=== PATIENT | female | born 1995 | race African-American/Black ===

== ENCOUNTER 2016-10-18 22:07 | Emergency (ER) | payer OTHER ==
[2016-10-18 22:21] VITALS: BP 119/56; PULSE 86; TEMP 97.9; BMI 23.2
--- NOTE | 2016-10-19 01:06 | PDOC ---
History of Present Illness - General Chief Complaint: Back Pain Stated Complaint: LOWER BACK PAIN Time Seen by Provider: 10/19/16 01:04 - History of Present Illness Initial Comments: 10/19/16 01:37 Patient is a 21-year-old female with no past medical history who presents to the emergency department today complaining of lower back pain. She states her pain started approximately 4 days ago and hasn't gotten better. She's been taking Motrin as needed for pain. She states that her back feels like it is seizing, and it hurts to walk. Admits to limp, back spasm. Denies bladder/bowel incontinence. Denies hematuria, frequency, urgency, dysuria, weakness, numbness , tingling, unsteady gait. Past History - Past Medical History Allergies/Adverse Reactions: Allergies Allergy/AdvReac Type Severity Reaction Status Date / Time No Known Allergies Allergy Verified 10/18/16 22:17 Home Medications: Ambulatory Orders Diazepam [Valium] 5 mg PO Q8H PRN #12 tablet MDD 3 10/19/16 Ibuprofen 800 mg PO TID #30 tablet 10/19/16 - Immunization History Immunization Up to Date: Yes - Psycho/Social/Smoking Cessation Hx Anxiety: No Suicidal Ideation: No Smoking History: Never smoked Hx Alcohol Use: No Review of Systems - Review of Systems Able to Perform ROS?: Yes Comments:: 10/19/16 01:37 CONSTITUTIONAL: Absent: fever, chills, diaphoresis, generalized weakness, malaise, loss of appetite HEENT: Absent: rhinorrhea, nasal congestion, throat pain, throat swelling, difficulty swallowing, mouth swelling, ear pain, eye pain, visual Changes CARDIOVASCULAR: Absent: chest pain, loss of consciousness, palpitations, irregular heart rate, peripheral edema RESPIRATORY: Absent: cough, shortness of breath, dyspnea with exertion, orthopnea, wheezing, stridor, hemoptysis GASTROINTESTINAL: Absent: abdominal pain, abdominal distension, nausea, vomiting, diarrhea, constipation, melena, hematochezia GENITOURINARY: Absent: dysuria, frequency, urgency, hesitancy, hematuria, flank pain, genital pain MUSCULOSKELETAL: Positive: back pain Absent: myalgia, arthralgia, joint swelling SKIN: Absent: rash, itching, pallor HEMATOLOGIC/IMMUNOLOGIC: Absent: easy bleeding, easy bruising, lymphadenopathy, frequent infections ENDOCRINE: Absent: unexplained weight gain, unexplained weight loss, heat intolerance, cold intolerance NEUROLOGIC: Absent: headache, focal weakness or paresthesias, dizziness, unsteady gait, seizure, mental status changes, bladder or bowel incontinence PSYCHIATRIC: Absent: anxiety, depression, suicidal or homicidal ideation, hallucinations. Is the patient limited Armenian proficient: No *Physical Exam - Vital Signs Last Vital Signs Temp Pulse Resp BP Pulse Ox 97.9 F 86 18 119/56 100 10/18/16 22:17 10/18/16 22:17 10/18/16 22:17 10/18/16 22:17 10/18/16 22:17 - Physical Exam Comments: 10/19/16 01:37 GENERAL: Well developed, well nourished. Awake and alert. No acute distress. HEENT: Normocephalic, atraumatic. NECK: Supple. Full ROM. No JVD. Carotid pulses 2+ and symmetric, without bruits. No thyromegaly. No lymphadenopathy. No midline neck pain MUSCULOSKELETAL TTP of lower back b/l. Palpable spasm. Normal range of motion at all joints. No bony deformities or tenderness. No CVA tenderness. EXTREMITIES: No cyanosis. No clubbing. No edema. No calf tenderness. SKIN: Warm and dry. Normal capillary refill. No rashes. No jaundice. NEUROLOGICAL: Alert, awake, appropriate. Cranial nerves 2-12 intact. No deficits to light touch and temperature in face, upper extremities and lower extremities. No motor deficits in the in face, upper extremities and lower extremities. Normoreflexic in the upper and lower extremities. Normal speech. Toes are down- going bilaterally. Gait is normal without ataxia. Medical Decision Making - Medical Decision Making 10/19/16 01:41 Patient is a 21-year-old female with past medical history of back spasm who presents with bilateral lower back spasm. Patient that she has a palpable spasm bilaterally of her lower back on exam. Neuro exam is normal. No midline tenderness or any focal neuro deficits. We will give Toradol if urine is normal. Reevaluate 10/19/16 02:59 Urine is negative at this time. We'll give 60 of IM Toradol. We'll also give 5 mg of Valium for spasm. We will discharge patient home at this time. She is to take 800 of ibuprofen 3 times a day as well as Valium as needed for spasm. He was instructed that this medication make her drowsy and she should not drive. Patient understands all discharge instructions and all questions were answered at this time. *DC/Admit/Observation/Transfer Diagnosis at time of Disposition: Back spasm - Discharge Dispostion Admit: No - Prescriptions Prescriptions: Ibuprofen 800 mg PO TID #30 tablet Diazepam [Valium] 5 mg PO Q8H PRN #12 tablet MDD 3 PRN Reason: Pain - Referrals Referrals: Mohan Mchugh MD [Staff Physician] - - Patient Instructions Printed Discharge Instructions: DI for Back Spasm Additional Instructions: You have a back spasm. you were prescribed ibuprofen. Take this every 8 hours until the spasm breaks. You were also prescribed valium. Take this as prescribed until the spasm breaks. Do not drive after taking this medication. Avoid lifting heavy objects. you may apply heat or ice to the back to help with pain. You were given a referral to a primary care doctor. Give them a call to set up an appointment. Return to the ED if you have worsening pain, chills, fevers, bladder/bowel incontinence, or any changes in your symptoms. - Post Discharge Activity Work/School Note: Back to Work
--- NOTE | 2016-10-19 02:06 | PDOC ---
*Physical Exam - Vital Signs Last Vital Signs Temp Pulse Resp BP Pulse Ox 97.9 F 86 18 119/56 100 10/18/16 22:17 10/18/16 22:17 10/18/16 22:17 10/18/16 22:17 10/18/16 22:17 Medical Decision Making - Medical Decision Making 10/19/16 02:06 agree with care from JEROME Jefferson *DC/Admit/Observation/Transfer Diagnosis at time of Disposition: Back spasm - Prescriptions Prescriptions: Ibuprofen 800 mg PO TID #30 tablet Diazepam [Valium] 5 mg PO Q8H PRN #12 tablet MDD 3 PRN Reason: Pain - Referrals Referrals: Mohan Mchugh MD [Staff Physician] - - Patient Instructions Printed Discharge Instructions: DI for Back Spasm Additional Instructions: You have a back spasm. you were prescribed ibuprofen. Take this every 8 hours until the spasm breaks. You were also prescribed valium. Take this as prescribed until the spasm breaks. Do not drive after taking this medication. Avoid lifting heavy objects. you may apply heat or ice to the back to help with pain. You were given a referral to a primary care doctor. Give them a call to set up an appointment. Return to the ED if you have worsening pain, chills, fevers, bladder/bowel incontinence, or any changes in your symptoms. - Post Discharge Activity Work/School Note: Back to Work
[2016-10-19] MEDS ORDERED: diazePAM 5 MG TABLET PO ONE (02:21)
[2016-10-19] MEDS ORDERED: KETOROLAC TROMETHAMINE 60 MG/2 ML VIAL IM ONE (02:21)
[2016-10-19] MEDS ORDERED: diazePAM 5 MG TABLET ONE (02:26)
[2016-10-19] MEDS ORDERED: KETOROLAC TROMETHAMINE 60 MG/2 ML VIAL ONE (02:26)
== END 2016-10-19 02:39 | disposition home or self-care (01) ==
LOC: JER 22:07
PROC: 3E0233Z Introduction of Anti-inflammatory into Muscle, Percutaneous Approach (ICD-10-PCS; principal; 2016-10-18)
DX: M62.830 Muscle spasm of back (principal)
CPT/HCPCS: 84703; 99281-25

== ENCOUNTER 2017-12-28 22:22 | Emergency (ER) | payer OTHER ==
[2017-12-28 22:31] VITALS: BP 132/69; PULSE 114; TEMP 99.5; BMI 29.2
--- NOTE | 2017-12-28 23:33 | PDOC ---
History of Present Illness - General Chief Complaint: Pain Stated Complaint: STOMACH PAIN Time Seen by Provider: 12/28/17 23:17 History Source: Patient Exam Limitations: No Limitations - History of Present Illness Travel History: No Initial Comments: 12/28/17 23:27 HISTORY OF PRESENT ILLNESS: This is a 22-year-old woman past medical history of asthma presents emergency Department with left pelvic pain for the past 2 weeks. Patient describes pain as a cramping feeling with occasional sharp shooting pains from left pelvic region through her vagina. Patient only seeking care she thought her menses were causing the pain. Patient reports having unprotected vaginal intercourse with one male partner over the past 8 months. Patient states her LMP is 9/30 but had decreased flow and only lasted 2 days. Patient denies any vaginal discharge, vaginal bleeding, dysuria, hematuria, rectal bleeding, diarrhea. Patient does report passing any large firm stool this morning with her previous bowel movement being 3 days ago. Patient's usual bowel habits include daily bowel movements. No recent travel or sick contacts. PAST MEDICAL HISTORY: asthma SURGICAL HISTORY: Denies ALLERGIES: No known drug allergies REVIEW OF SYSTEMS General/Constitutional: Denies fever or chills. Denies weakness, weight change. HEENT: Denies change in vision. Denies ear pain or discharge. Denies sore throat. Cardiovascular: Denies chest pain or shortness of breath. Respiratory: Denies cough, wheezing, or hemoptysis. Gastrointestinal: Denies nausea, vomiting, diarrhea. +constipation. Denies rectal bleeding. Left pelvic pain. Genitourinary: Denies dysuria, frequency, or change in urination. Musculoskeletal: Denies joint or muscle swelling or pain. Denies neck or back pain. Skin and breasts: Denies rash or easy bruising. Neurologic: Denies headache, vertigo, loss of consciousness, or loss of sensation. Psychiatric: Denies depression or anxiety. Endocrine: Denies increased thirst. Denies abnormal weight change. Hematologic/Lymphatic: Denies anemia, easy bleeding, or history of blood clots. Allergic/Immunologic: Denies hives or skin allergy. Denies latex allergy. PHYSICAL EXAM General Appearance: Well-appearing, appropriately dressed. No apparent distress , no intoxication. HEENT: EOMI, PERRLA, normal ENT inspection, normal voice, TMs normal, pharynx normal. No conjunctival pallor. No photophobia, scleral icterus. Neck: Supple. Trachea midline. No tenderness, rigidity, carotid bruit, stridor , lymphadenopathy, or thyromegaly. Respiratory/Chest: Lungs CTAB. No shortness of breath, chest tenderness, respiratory distress, accessory muscle use. No crackles, rales, rhonchi, stridor , wheezing, dullness Cardiovascular: RRR. S1, S2. No JVD, murmur, bradycardia, tachycardia. Vascular Pulses: Dorsalis-Pedis (R): 2+, Dorsalis-Pedis (L): 2+ Gastrointestinal/Abdominal: Normal bowel sounds. Abdomen soft, non-distended. Diffusely tender worse in right pelvic area. No rebound tenderness. No organomegaly, pulsatile mass, guarding, hernia, hepatomegaly, splenomegaly. Lymphatic: No adenopathy, tenderness. Musculoskeletal/Extremities: Normal inspection. FROM of all extremities, normal capillary refill. Pelvis Stable. No CVA tenderness. No tenderness to extremities, pedal edema, swelling, erythema or deformity. Integumentary: Appropriate color, dry, warm. No cyanosis, erythema, jaundice or rash Neurologic: trapeze artist II-XII intact. Fully oriented, alert. Appropriate mood/affect. Motor strength 5/5. No appreciable EOM palsy, facial droop or sensory deficit. Past History - Past Medical History Allergies/Adverse Reactions: Allergies Allergy/AdvReac Type Severity Reaction Status Date / Time No Known Allergies Allergy Verified 12/28/17 22:31 Home Medications: Ambulatory Orders Diazepam [Valium] 5 mg PO Q8H PRN #12 tablet MDD 3 10/19/16 Ibuprofen 800 mg PO TID #30 tablet 10/19/16 COPD: No - Immunization History Immunization Up to Date: Yes - Suicide/Smoking/Psychosocial Hx Smoking History: Never smoked Hx Alcohol Use: No *Physical Exam - Vital Signs Last Vital Signs Temp Pulse Resp BP Pulse Ox 99.5 F 114 H 18 132/69 100 12/28/17 22:28 12/28/17 22:28 12/28/17 22:28 12/28/17 22:28 12/28/17 22:28 ED Treatment Course - LABORATORY CBC & Chemistry Diagram: 12/28/17 23:47 12/28/17 23:47 Medical Decision Making - Medical Decision Making 12/28/17 23:41 A/P: 22-year-old woman lower abdominal pain for 2 weeks Abdomen diffusely tender worse in the right pelvic region 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 No blood noted in vault. Thin white discharge present Right adnexal tenderness Left adnexa is within normal limits DDx: ectopic , TOA, UTI, neoplasm, ovarian torsion Labs, ultrasound, urine, reassess 12/29/17 01:49 Ultrasound as read by imaging clinical admissions manager: Thin endometrial stripe, likely related to the face of the patient's cycle. Otherwise unremarkable pelvic sonogram. Urinalysis, CBC and BMP are unremarkable. Patient with elevated LFTs. Patient states she has had elevated LFTs in the past and has had a full workup for hepatitis. Etoh vs ?PID. Unilateral tenderness makes PID less likely but I will cover with Rocephin 250mg IM and Zithromax 1g orally. Patient with continued abdominal pain. CTAP with IV contrast 12/29/17 03:23 CT as read by imaging clinical admissions manager: Slightly lobulated uterine contour suggesting fibroids Otherwise, unremarkable CT the abdomen and pelvis. All laboratory, sonographic and radiographic findings discussed with patient. I will discharge the patient home to follow-up with her primary doctor. *DC/Admit/Observation/Transfer Diagnosis at time of Disposition: PID (acute pelvic inflammatory disease) - Discharge Dispostion Disposition: HOME Condition at time of disposition: Stable Decision to Admit order: No - Referrals Referrals: Mohan Mchugh MD [Primary Care Provider] - - Patient Instructions Additional Instructions: You been treated today with azithromycin 1 g by mouth for treatment of presumed chlamydia You have been treated with Rocephin 250 mg injection for treatment of presumned gonorrhea The syphilis test, gonorrhea and chlamydia testing will not be completed for the next few days. You may call and leave message for return phone call with lab results. Be sure to be clear with your name, birthdate, and phone number Always use condoms with the partners Followup with INFORMATION ASSURANCE SPECIALIST or PMD in one week for reevaluation and retesting. - Post Discharge Activity
[2017-12-28 23:58] LABS: BASO % 0.7 % (0-2.0); HEMATOCRIT 39.4 % (32.4-45.2); LYMPH % 21.2 % (8-40); MCH 25.6 pg (25.7-33.7); MCHC 32.9 g/dl (32.0-36.0); MEAN CELL VOLUME 77.7 fl (80-96); MEAN PLT VOLUME 7.5 fl (7.5-11.1); MONO % 7.7 % (3.8-10.2); NEUT % 69.4 % (42.8-82.8); PLATELET COUNT 275 K/MM3 (134-434); RBC 5.07 M/mm3 (3.60-5.2); RDW 12.8 % (11.6-15.6); WHITE BLOOD COUNT 9.5 K/mm3 (4.0-10.0)
[2017-12-29 00:01] LABS: URINE APPEARANCE CLEAR; URINE BILIRUBIN NEGATIVE (<2.0 mg/dL); URINE COLOR LTYELLOW; URINE GLUCOSE (UA) NEGATIVE (NEGATIVE); URINE KETONE NEGATIVE (NEGATIVE); URINE LEUK ESTERASE NEGATIVE (NEGATIVE); URINE NITRITE NEGATIVE (NEGATIVE); URINE PROTEIN NEGATIVE (NEGATIVE); URINE UROBILINOGEN NEGATIVE mg/dL (0.2-1.0)
[2017-12-29 00:03] LABS: HCG,QUALITATIVE URINE Negative
[2017-12-29 00:37] LABS: ALBUMIN 3.2 g/dl (3.4-5.0); ALK PHOS 226 U/L (45-117); ANION GAP 7 MMOL/L (8-16); BILIRUBIN,TOTAL 0.3 mg/dL (0.2-1); BLOOD UREA NITROGEN 11 mg/dL (7-18); CALCIUM 8.5 mg/dL (8.5-10.1); CHLORIDE 106 mmol/L (98-107); CO2 28 mmol/L (21-32); CREATININE 0.7 mg/dL (0.55-1.3); GLUCOSE,RANDOM 87 mg/dL (74-106); LIPASE 260 U/L (73-393); POTASSIUM 3.6 mmol/L (3.5-5.1); SGOT/AST 90 U/L (15-37); SGPT/ALT 125 U/L (13-61); SODIUM 140 mmol/L (136-145); TOT PROT 7.2 g/dl (6.4-8.2)
[2017-12-29] MEDS ORDERED: morphine SULFATE 4 MG/ML VIAL IVPUSH ONE (01:23)
[2017-12-29] MEDS ORDERED: SODIUM CHLORIDE 1,000 ML IV STA (01:23)
[2017-12-29] MEDS ORDERED: AZITHROMYCIN 1 GM PACKET PO ONE (01:54)
[2017-12-29] MEDS ORDERED: MORPHINE SULFATE 2 MG/ML VIAL IVPUSH ONE (02:01)
[2017-12-29] MEDS ORDERED: ONDANSETRON 4 MG/2 ML VIAL ONE (02:02)
[2017-12-29] MEDS ORDERED: morphine SULFATE 4 MG/ML VIAL ONE (02:02)
[2017-12-29] MEDS ORDERED: ONDANSETRON 4 MG/2 ML VIAL IVPUSH ONE (02:02)
[2017-12-29] MEDS ORDERED: LIDOCAINE HCL 2% (20ML MULTI-DOSE VIAL) NR ONE (02:51)
[2017-12-29] MEDS ORDERED: cefTRIAXone SODIUM 1 GM VIAL ONE (02:51)
[2017-12-29] MEDS ORDERED: AZITHROMYCIN 250 MG TABLET ONE (02:52)
== END 2017-12-29 03:36 | disposition home or self-care (01) ==
LOC: JER 22:22
PROC: 3E02329 Introduction of Other Anti-infective into Muscle, Percutaneous Approach (ICD-10-PCS; principal; 2017-12-28)
PROC: 3E033NZ Introduction of Analgesics, Hypnotics, Sedatives into Peripheral Vein, Percutaneous Approach (ICD-10-PCS; 2017-12-28)
PROC: 3E033GC Introduction of Other Therapeutic Substance into Peripheral Vein, Percutaneous Approach (ICD-10-PCS; 2017-12-28)
DX: N73.0 Acute parametritis and pelvic cellulitis (principal)
CPT/HCPCS: 36415; 74177-TC; 76830-TC; 80053; 81003; 83690; 84702; 84703; 85025; 86850; 86900; 86901; 87086; 87491; 87591; 99283-25; J7030

== ENCOUNTER 2019-01-24 06:40 | Inpatient (IN) | payer OTHER ==
[2019-01-24 08:07] LABS: BASO % 0.3 % (0-2.0); EOS % 0.8 % (0-4.5); HEMATOCRIT 33.2 % (32.4-45.2); HEMOGLOBIN 11.7 GM/dL (10.7-15.3); LYMPH % 25.4 % (8-40); MCH 27.3 pg (25.7-33.7); MCHC 35.1 g/dl (32.0-36.0); MEAN CELL VOLUME 77.7 fl (80-96); MEAN PLT VOLUME 8.7 fl (7.5-11.1); MONO % 8.2 % (3.8-10.2); NEUT % 65.3 % (42.8-82.8); PLATELET COUNT 164 K/MM3 (134-434); RBC 4.27 M/mm3 (3.60-5.2); RDW 14.9 % (11.6-15.6); WHITE BLOOD COUNT 8.7 K/mm3 (4.0-10.0)
[2019-01-24 08:08] VITALS: BMI 36.2
[2019-01-24 08:18] LABS: BLOOD UREA NITROGEN 8.7 mg/dL (7-18); CALCIUM 8.7 mg/dL (8.5-10.1); CREATININE 0.7 mg/dL (0.55-1.3); POTASSIUM 3.8 mmol/L (3.5-5.1)
[2019-01-24] MEDS ORDERED: OXYTOCIN 30 UNITS in 0.9% NS 30 UNIT/500 ML INFUS.BAG IVPB ONE (08:21)
[2019-01-24] MEDS ORDERED: BUTORPHANOL TARTRATE 1 MG/ML VIAL IVPB ONE (08:44)
[2019-01-24] MEDS ORDERED: OXYTOCIN 30 UNITS in 0.9% NS 30 UNIT/500 ML INFUS.BAG IVPB SCH (08:45)
[2019-01-24] MEDS ORDERED: DEXTROSE 5%-LACTATED RINGERS 1,000 ML IV SCH (08:45)
[2019-01-24 09:20] LABS: INR 0.91 (0.83-1.09); PROTHROMBIN TIME (PATIENT) 10.7 SEC (9.7-13.0)
[2019-01-24 09:37] LABS: RPR NONREACTIVE (NONREACTIVE)
[2019-01-24 11:34] LABS: PLATELET ESTIMATE ADEQUATE
[2019-01-24] MEDS ORDERED: BUTORPHANOL TARTRATE 1 MG/ML VIAL ONE ×2 (14:38)
--- NOTE | 2019-01-24 16:10 | HP ---
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: No: Alzheimer's, CVA, Dementia, Migraine, Multiple Sclerosis, Peripheral Neuropathy, Parkinson's, Seizure, Syncope, TIA, Vertigo, Other Cardiovascular: No: AFIB, Aneurysm, Aortic Insufficiency, Aortic Stenosis, CAD, CHF, Deep Vein Thrombosis, HTN, Hyperlipdemia, [place], Mitral Insufficiency, Mitral Stenosis, Murmur, Pulmonary Hypertension, Other Pulmonary: No: Asthma, Bronchitis, Cancer, COPD, O2 Dependent, Pneumonia, Previously Intubated, Pulmonary Embolus, Pulmonary Fibrosis, Sleep Apnea, Other Gastrointestinal: No: Ascites, Cancer, Constipation, Crohn's Disease, Diverticulitis, Diverticulosis, Esophageal Varices, Gastritis, GERD, GI Bleed, Hemorrhoids, Hiatal Hernia, Inflamatory Bowel Disease, Irritable Bowel Disease, Pancreatitis, Peptic Ulcer Disease, Ulcerative Colitis, Other Hepatobiliary: No: Cirrhosis, Cholelithiasis, Cholecystitis, Choledocholithiasis , Hepatitis A, Hepatitis B, Hepatitis C, Other Renal/: No: Renal Failure, Renal Inusuff, BPH, Cancer, Hematuria, Hemodialysis , Neurogenic Bladder, Renal Calculi, UTI, Other Reproductive: No: Ectopic , Endometriosis, Fibroids, PID, Polycystic Ovary Syndrome, Postmenopausal, Other ...: 3 ...Para: 0 ...Term: 0 ...: 0 ...Spon : 1 ...Induced : 1 ...Multiple Gestation: 0 ...LMP: 04/20/18 ... Weeks Gestation by Dates: 39.6 ...EDC by Dates: 01/25/19 ...EDC by Sono: 01/30/19 Heme/Onc: No: Anemia, B12 Deficiency, Bleeding Disorder, Cancer, Current Chemotherapy, Current Radiation Therapy, Hemochromatosis, Hypercoaguable State, Myeloproliferative Synd, Sickle Cell Disease, Sickle Cell Trait, Thrombocytopenia, Other Infectious Disease: No: AIDS, C-Diff, Herpes Zoster, HIV, MRSA, STD's, Tuberculosis, VREF, Other Psych: No: Addictions, Anxiety, Bipolar, Depression, Panic, Psychosis, Schizophrenia, Other Musculoskeletal: No: Bursitis, Chronic low back pain, Hemiparesis, Hemiplegia, Osteoarthritis, Paraplegia, Other Rheumatology: No: Fibromyalgia, Gout, Lupus, Rheumatoid Arthritis, Sarcoidosis, Vasculitis, Other ENT: No: Allergic Rhinitis, Sinusitis, Other Endocrine: No: [place]'s Disease, [place]'s Disease, Diabetes Insipidus, Diabetes Mellitus, Hyperparathyroidism, Hyperthyroidism, Hypothyroidism, Osteopenia, SIADH, Other Dermatology: No: Basal Cell, Cellulitis, Eczema, Melanoma, Psoriasis, Squamous Cell, Other - Past Surgical History Past Surgical History: No: None, AAA Repair, AICD, Amputation, Appendectomy, Arthrosocopy, AV Fistula/Graft, Bariatric Surgery, Breast Biopsy, Bypass, CABG, Carotid Endarterectomy, Cataract Removal, Cholecystectomy, Colectomy, Colonoscopy, Colostomy, Craniotomy, , Cystectomy, Hernia Repair, Hysterectomy, Ileal Conduit, Ileosotomy, Joint Replacement, Kidney Transplant, Laminectomy, Liver Transplant, Mastectomy, Nephrectomy, Oopherectomy, Orchiectomy, Permanent Pacemaker, Prostatectomy, Splenectomy, Stent, Thoracotomy , TURP, Tonsillectomy, Tubal Ligation, Upper Endoscopy, Valve Replacement, Vasectomy, Vein Stripping/Ligation Hx Myomectomy: No Hx Transabdominal Cerclage: No - Advance Directives Advance Directives: Yes: Living Will - Smoking History Smoking history: Never smoked Have you smoked in the past 12 months: No - Alcohol/Substance Use Hx Alcohol Use: No History of Substance Use: reports: None - Social History Usual Living Arrangement: Yes: With Significant Other Do you think of yourself as: Straight/Heterosexual ADL: Independent History of Recent Travel: No Home Medications - Allergies Allergies/Adverse Reactions: Allergies Allergy/AdvReac Type Severity Reaction Status Date / Time walnut Allergy Severe Difficulty Verified 10/02/18 22:43 Breathing watermelon Allergy Intermediate Itching Verified 10/02/18 22:43 - Home Medications Home Medications: Ambulatory Orders Vit No.129/Iron/Folic [ One Daily Tablet] 1 each PO DAILY 10/01 Family Medical History Family History: Denies Review of Systems - Review of Systems Constitutional: reports: No Symptoms Eyes: reports: No Symptoms HENT: reports: No Symptoms Neck: reports: No Symptoms Cardiovascular: reports: No Symptoms Respiratory: reports: No Symptoms Gastrointestinal: reports: No Symptoms Genitourinary: reports: No Symptoms Breasts: reports: No Symptoms Reported Musculoskeletal: reports: No Symptoms Integumentary: reports: No Symptoms Neurological: reports: No Symptoms Endocrine: reports: No Symptoms Hematology/Lymphatic: reports: No Symptoms Psychiatric: reports: No Symptoms Physical Exam - Maternity Vital Signs: Vital Signs Temperature 97.9 F 01/24/19 13:00 Pulse Rate 78 01/24/19 13:00 Respiratory Rate 20 01/24/19 13:00 Blood Pressure 139/83 01/24/19 13:00 O2 Sat by Pulse Oximetry (%) Constitutional: Yes: Well Nourished, No Distress, Calm Eyes: Yes: WNL, Conjunctiva Clear, EOM Intact HENT: Yes: WNL, Atraumatic, Normocephalic Neck: Yes: WNL, Supple, Trachea Midline Cardiovascular: Yes: WNL, Regular Rate and Rhythm Lungs: Clear to auscultation Breast(s): Yes: WNL - Abdominal Exam/OB Fundal Height: 40 Number of Fetuses: Single Presentation: Vertex Contractions: Yes Regularity: Irregular Intensity: Mild/Mod Monitor Mode: External Heart Rate Location: [facility] Category: I Accelerations: Uniform Decelerations: None - Vaginal Exam/OB Vaginal Bleediing: No Speculum Exam: Yes Dilatation (cm): 1 cm Amniotic Membrane Status: Intact Presentation: Vertex/Position Station: -2 - Physical Exam Musculoskeletal: Yes: WNL Extremities: Yes: WNL Edema: LUE: 2+, RUE: 2+, LLE: 2+, RLE: 2+ Integumentary: Yes: WNL Deep Tendon Reflex Grade: Normal +2 ...Motor Strength: WNL Psychiatric: Yes: WNL, Alert, Oriented - Labs Lab Results: CBC, BMP 01/24/19 07:40 01/24/19 07:40 Assessment/Plan mild pre eclampsia , swollen, for induction, although bp were up and down around 135 to 140 range
--- NOTE | 2019-01-24 16:15 | PN ---
Progress Note (short form) - Note Progress Note: 4pm nst reactive, uc q 5 min, asking for stadol, given, cx 2 cm -2, 70 %, continue laboring w pitocin
[2019-01-24] MEDS ORDERED: FENTANYL/BUPIVACAINE/NS/PF - PCEA - 50 ML DISP.SYRIN EP ONE (17:20)
[2019-01-24] MEDS ORDERED: BUPIVACAINE HCL/PF 2.5 MG/ML - 30 ML VIAL IJ ONE (17:32)
[2019-01-24] MEDS ORDERED: NALOXONE HCL 0.4 MG/ML VIAL IVPUSH PRN (18:17)
[2019-01-24] MEDS ORDERED: FENTANYL/BUPIVACAINE/NS/PF - PCEA - 50 ML DISP.SYRIN EP SCH (18:30)
--- NOTE | 2019-01-24 19:51 | PN ---
Progress Note (short form) - Note Progress Note: 630 pm 2 cm, finally took epidural. some variable deccel, recovered , will consider c s soon
--- NOTE | 2019-01-24 19:52 | PN ---
Progress Note (short form) - Note Progress Note: 740 pm 2 cm, -2, 70 %. no cervical change, some variable decels, for c s , pt agreed
[2019-01-24] MEDS ORDERED: LIDO 2%/EPI 1:200000 PRESRVFRE (20 ML SDVIAL) ONE (20:31)
[2019-01-24] MEDS ORDERED: ceFAZolin SODIUM 1 GM VIAL ONE (20:45)
[2019-01-24] MEDS ORDERED: OXYTOCIN 10 UNITS/ML VIAL ONE ×2 (20:54→20:58)
[2019-01-24] MEDS ORDERED: morphine SULFATE/PF 0.5 MG/ML (2cc Syringe - QUVA) ONE ×3 (21:07)
[2019-01-24] MEDS ORDERED: CITRIC ACID/SODIUM CITRATE 30 ML UNIT-DOSE CUP PO ONE (21:47)
[2019-01-24] MEDS ORDERED: oxyCODONE HCL 5 MG TABLET PO PRN ×2 (21:48)
[2019-01-24] MEDS ORDERED: METHYLERGONOVINE MALEATE 0.2 MG/1 ML AMP IM PRN (21:48)
[2019-01-24] MEDS ORDERED: ONDANSETRON 4 MG/2 ML VIAL IVPUSH PRN (21:55)
--- NOTE | 2019-01-24 21:56 | OP ---
Operative Note - Note: Operative Date: 01/24/19 Pre-Operative Diagnosis: failure to progress Operation: primary lt c s Findings: op, can x 1, ca both feet x1 Post-Operative Diagnosis: Same as Pre-op Surgeon: Michel Bah Language Path: Yung Hamilton Anesthesiologist/CHILD AND ADOLESCENT PSYCHOLOGIST: Noelle Woo Anesthesia: Spinal Estimated Blood Loss (mls): 500 Operative Report Dictated: Yes
[2019-01-24] MEDS ORDERED: SENNOSIDES/DOCUSATE COMBO (SENNA PLUS) TABLET (UD) PO PRN (22:00)
[2019-01-24] MEDS ORDERED: OXYTOCIN 20 UNITS in 0.9% NS 20 UNIT/1,000 ML INFUS.BAG IV SCH (22:00)
[2019-01-24] MEDS ORDERED: ELECTROLYTE-148 SOLN 1,000 ML IV SCH (22:00)
[2019-01-24] MEDS ORDERED: OXYTOCIN 20 UNITS in 0.9% NS 20 UNIT/1,000 ML INFUS.BAG IV ONE (22:31)
[2019-01-24] MEDS ORDERED: IBUPROFEN 800 MG/8 ML IJ IVPB ONE (23:58)
[2019-01-25] MEDS: IBUPROFEN 800 MG/8 ML IJ IVPB PRN ×2 (00:15→07:56)
[2019-01-25] MEDS ORDERED: ACETAMINOPHEN 325 MG TABLET (FP) ONE (01:51)
[2019-01-25] MEDS ORDERED: OXYTOCIN 20 UNITS in 0.9% NS 20 UNIT/1,000 ML INFUS.BAG IV ONE (01:53)
[2019-01-25] MEDS: ACETAMINOPHEN 325 MG TABLET (FP) PO PRN ×2 (02:00→15:08)
[2019-01-25] MEDS ORDERED: IBUPROFEN 800 MG/8 ML IJ IVPB ONE (07:35)
[2019-01-25 08:18] LABS: BASO % 0.3 % (0-2.0); EOS % 0.1 % (0-4.5); HEMATOCRIT 31.9 % (32.4-45.2); HEMOGLOBIN 10.4 GM/dL (10.7-15.3); LYMPH % 14.8 % (8-40); MCH 25.4 pg (25.7-33.7); MCHC 32.8 g/dl (32.0-36.0); MEAN CELL VOLUME 77.5 fl (80-96); MEAN PLT VOLUME 8.9 fl (7.5-11.1); MONO % 6.2 % (3.8-10.2); NEUT % 78.6 % (42.8-82.8); PLATELET COUNT 158 K/MM3 (134-434); RBC 4.11 M/mm3 (3.60-5.2); RDW 14.9 % (11.6-15.6); WHITE BLOOD COUNT 15.2 K/mm3 (4.0-10.0)
--- NOTE | 2019-01-25 10:40 | PN ---
Progress Note (short form) - Note Progress Note: POD1 s/p csection with epidural and duramorph. Doing well, no PARK no BP, has not ambulated yet. No anesthetic issues/complications noted.
[2019-01-25] MEDS: ENOXAPARIN NA (PORCINE) 40 MG/0.4 ML DISP.SYRIN SQ SCH (10:41)
[2019-01-25] MEDS ORDERED: DIPHTH,PERTUSS(ACELL),TET 0.5 ML DISP.SYRIN IM ONE (14:00)
[2019-01-25] MEDS: IBUPROFEN 600 MG TABLET (FP) PO PRN (15:07)
[2019-01-25] MEDS: SIMETHICONE 80 MG TAB.CHEW (FP) PO PRN (15:07)
--- NOTE | 2019-01-25 17:12 | PN ---
Post Progress Note Post Day: 1 Type of Delivery: Primary C/S Vital Signs: Vital Signs Temperature 98.9 F 01/25/19 14:00 Pulse Rate 100 H 01/25/19 14:00 Respiratory Rate 18 01/25/19 16:00 Blood Pressure 124/80 01/25/19 14:00 O2 Sat by Pulse Oximetry (%) 98 01/24/19 22:35 Breast Exam: Yes: Soft Uterus: Yes: Fundus Firm, Fundus below umbilicus Incision: Yes: Sutures intact Abdomen/GI: Yes: Abdomen soft, Passing flatus, Tolerating PO Lochia: Yes: Serosa Lochia, amount: Small Extremities: Yes: Calves non-tender Perineum: Yes: Intact Activity: Ambulating - Labs Labs: CBC WBC 15.2 K/mm3 (4.0-10.0) H 01/25/19 07:14 RBC 4.11 M/mm3 (3.60-5.2) 01/25/19 07:14 Hgb 10.4 GM/dL (10.7-15.3) L 01/25/19 07:14 Hct 31.9 % (32.4-45.2) L 01/25/19 07:14 MCV 77.5 fl (80-96) L 01/25/19 07:14 MCH 25.4 pg (25.7-33.7) L 01/25/19 07:14 MCHC 32.8 g/dl (32.0-36.0) 01/25/19 07:14 RDW 14.9 % (11.6-15.6) 01/25/19 07:14 Plt Count 158 K/MM3 (134-434) 01/25/19 07:14 MPV 8.9 fl (7.5-11.1) 01/25/19 07:14 Absolute Neuts (auto) 11.9 K/mm3 (1.5-8.0) H 01/25/19 07:14 Neutrophils % 78.6 % (42.8-82.8) D 01/25/19 07:14 Lymphocytes % 14.8 % (8-40) D 01/25/19 07:14 Monocytes % 6.2 % (3.8-10.2) 01/25/19 07:14 Eosinophils % 0.1 % (0-4.5) D 01/25/19 07:14 Basophils % 0.3 % (0-2.0) 01/25/19 07:14 Nucleated RBC % 0 % (0-0) 01/25/19 07:14 Platelet Estimate Adequate 01/24/19 07:40 Platelet Comment No clumping noted 01/24/19 07:40 Assessment/Plan doung well, no complaints
--- NOTE | 2019-01-25 17:14 | DS ---
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 Vital Signs: Vital Signs Temperature 98.9 F 01/25/19 14:00 Pulse Rate 100 H 01/25/19 14:00 Respiratory Rate 18 01/25/19 16:00 Blood Pressure 124/80 01/25/19 14:00 O2 Sat by Pulse Oximetry (%) 98 01/24/19 22:35 Constitutional: Yes: Well Nourished, No Distress, Calm Eyes: Yes: WNL, Conjunctiva Clear, EOM Intact HENT: Yes: WNL, Atraumatic, Normocephalic Neck: Yes: WNL, Supple, Trachea Midline Cardiovascular: Yes: WNL, Regular Rate and Rhythm Respiratory: Yes: WNL, Regular, CTA Bilaterally Gastrointestinal: Yes: WNL, Normal Bowel Sounds, Soft ...Rectal Exam: Yes: WNL Renal/: Yes: WNL Pelvis: Yes: WNL External Genitalia: Yes: Normal Internal Exam Deferred: No Vaginal Exam: Yes: Normal Cervix: Yes: Normal Uterus: Yes: Normal Adnexa: Normal: Bilateral ....Post : Yes: Uterus firm, Uterus non-tender Breast(s): Yes: WNL Musculoskeletal: Yes: WNL Extremities: Yes: WNL Edema: Yes Edema: LUE: 1+, RUE: 1+, LLE: 1+, RLE: 1+ Integumentary: Yes: WNL Wound/Incision: Yes: Clean/Dry, Well Approximated Neurological: Yes: WNL, Alert, Oriented ...Motor Strength: WNL Psychiatric: Yes: WNL, Alert, Oriented Labs: CBC, BMP 01/25/19 07:14 01/24/19 07:40 Delivery - Delivery Section: Primary Type of Anesthesia: Epidural Episiotomy/Laceration: None EBL (cc): 300 Delivery, Single - Stages of Labor Date 1st Stage Initiatied: 01/23/19 Time 1st Stage Initiated: 14:40 Date of Delivery: 01/23/19 Time of Delivery: 20:54 Time Placenta Delivered: 20:56 - Condition of Infant Entertainment & 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/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 Operator Helper Present: Yes Name: Nette Heredia Infant Gender: Male Weight: 3.147 kg Position: OP Total Hours ROM (Hrs/Mins): 12H21M - 1 Minute Total Score: 9 5 Minutes Total Score: 9 - [place] Feeding Plan Initial Plan: Elected not to breastfeed exclusively throughout hospitalization Discharge Summary Problems reviewed: Yes Reason For Visit: LABOR INDUCTION fail to progress Procedures: Principal: primary lt c s Condition: Good - Instructions Diet, Activity, Other Instructions: regular Disposition: HOME - Home Medications Comprehensive Discharge Medication List: Ambulatory Orders Vit No.129/Iron/Folic [ One Daily Tablet] 1 each PO DAILY 10/01 Prescription Drug Monitoring Program (I-STOP) results: I-STOP reviewed and no issues identified
--- NOTE | 2019-01-25 17:43 | OP ---
DATE OF OPERATION: 01/24/2019 PREOPERATIVE DIAGNOSIS: Failure to progress and mild preeclampsia. POSTOPERATIVE DIAGNOSIS: Occiput posterior, cord around neck x1 and cord around the foot, both feet, x1. PROCEDURE PERFORMED: Primary low transverse section. SURGEON: Michel Bah MD LADLE WATCHER: JEROME Velasco ANESTHESIOLOGIST: ANESTHESIA: Epidural and top off. ESTIMATED BLOOD LOSS: About 500 mL. SPECIMENS: Placenta sent to Pathology. INDICATIONS: This is a 23-year-old female patient at 39 weeks 3 days, who has been complaining of about swelling of the face, which was 2+ to 3+ edema. Although the patient's blood pressure was normal, the patient has been very swollen in the past 2 to 3 weeks. The patient's blood pressure finally increased a little bit to 135 range in the past 2 weeks, so the patient at 39 weeks and a few days was instructed and the patient requested to be induced, and the patient was admitted for the induction process. The patient received artificial rupture of membranes around 7:30 in the morning and had Pitocin for more than 12 hours and cervix still 2 cm dilated and the patient has pain and has received Stadol and received epidural for pain management. However, cervix still not dilated and the patient had some variable deceleration and the decision was made around 7:30 to take the patient for failure to progress for primary low transverse section, with mild preeclampsia. DESCRIPTION OF PROCEDURE: The patient was placed on the operating table in the supine position. The patient already had epidural anesthesia. The patient had top off with anesthesia. Then the patient's abdomen and pelvis were prepped and draped in the usual sterile manner. A Pfannenstiel incision was made. Incision was made through the skin and subcutaneous tissue until the fascia was nicked in the midline. The fascial incision was extended bilaterally. The intraperitoneal cavity was entered. A bladder flap was created. The low transverse segment of the uterus was entered. The baby was delivered from OP position. Cord around the neck x1 and cord around both feet x1. The baby was handed over to senior infrastructure engineer after umbilical cord doubly clamped and cut. Cord blood gas obtained. The placenta was removed. The uterus was closed in a single layer, the 1st layer with interlocking Vicryl sutures. Good hemostasis. Both gutters clean. Both ovaries and fallopian tubes within normal limits. There was some scar tissue possibly from PID in the posterior cul-de-sac area. Filmy adhesions were observed. The patient also had a fibroid uterus about 3 x 3 cm on the anterior part of her uterus and also like 1 x 1 cm the posterior part of the uterus. Other than that, no complications. Tolerated the procedure well. Peritoneum was closed. Fascia was closed. Skin was closed. Transferred to the recovery room in stable condition. Draining clear urine. MD KALPANA LEE/[id number]
[2019-01-26] MEDS: IBUPROFEN 600 MG TABLET (FP) PO PRN ×5 (00:58→22:42)
[2019-01-26] MEDS: BISACODYL 10 MG SUPP.RECT RC PRN ×2 (01:41→18:36)
[2019-01-26] MEDS: ACETAMINOPHEN 325 MG TABLET (FP) PO PRN ×4 (07:10→22:42)
[2019-01-26] MEDS: SIMETHICONE 80 MG TAB.CHEW (FP) PO PRN ×3 (07:10→18:37)
[2019-01-26] MEDS: ENOXAPARIN NA (PORCINE) 40 MG/0.4 ML DISP.SYRIN SQ SCH (09:53)
[2019-01-27] MEDS: IBUPROFEN 600 MG TABLET (FP) PO PRN (06:27)
[2019-01-27] MEDS: SIMETHICONE 80 MG TAB.CHEW (FP) PO PRN (06:28)
[2019-01-27] MEDS: ACETAMINOPHEN 325 MG TABLET (FP) PO PRN (06:28)
[2019-01-27 08:17] LABS: BASO % 0.3 % (0-2.0); EOS % 1.2 % (0-4.5); HEMATOCRIT 30.6 % (32.4-45.2); HEMOGLOBIN 10.1 GM/dL (10.7-15.3); LYMPH % 23.9 % (8-40); MCH 25.5 pg (25.7-33.7); MCHC 32.9 g/dl (32.0-36.0); MEAN CELL VOLUME 77.5 fl (80-96); MEAN PLT VOLUME 8.8 fl (7.5-11.1); MONO % 7.3 % (3.8-10.2); NEUT % 67.3 % (42.8-82.8); PLATELET COUNT 188 K/MM3 (134-434); RBC 3.95 M/mm3 (3.60-5.2); WHITE BLOOD COUNT 9.1 K/mm3 (4.0-10.0)
[2019-01-27] MEDS: ENOXAPARIN NA (PORCINE) 40 MG/0.4 ML DISP.SYRIN SQ SCH (09:34)
[2019-01-27 10:06] VITALS: BP 132/80; PULSE 72; TEMP 98.7
--- NOTE | 2019-01-29 17:09 | PATH ---
Surgical Pathology Report Patient Name: KADY LAWS [facility]. Rec. 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 Electronically Signed Betsy Betancourt M.D. Gross Description The specimen is received fresh labeled placenta and is a 441 gram, 16.0 x 14.5 x 2.5 cm. placenta with attached membranes and umbilical cord. The attached membranes are kapadia, translucent with focal opacities and insert marginally. The umbilical cord measures 33 cm. in length and averages 1 cm. in diameter. The cord inserts eccentrically, 5.5 cm. to the nearest margin. No true knots or strictures are identified. Cut surface of the umbilical cord reveals 3 vessels. The surface is sales-blue with minimal fibrin deposition and appropriate caliber vessels. The maternal surface is red-brown with focal defects. Sectioning reveals red-brown, spongy parenchyma. No lesions are identified. Electrical Control Assembler sections are submitted in three cassettes as follows: 1- membrane rolls and umbilical cord; 2-3- full thickness sections of placenta. /01/28/2019 saudi01/28/2019
== END 2019-01-27 11:20 | disposition home or self-care (01) | DRG 788 ==
LOC: JLDR 06:40 → J3W 01-25 09:27
PROVIDERS: ADMIT Obstetrics & Gynecology; ATTEND Obstetrics & Gynecology
PROC: 10D00Z1 Extraction of Products of Conception, Low, Open Approach (ICD-10-PCS; principal; 2019-01-24)
DX: O14.04 Mild to moderate pre-eclampsia, complicating childbirth (principal); O69.81X0 Labor and delivery complicated by cord around neck, without compression, not applicable or unspecified; O62.0 Primary inadequate contractions; Z3A.39 39 weeks gestation of pregnancy; Z37.0 Single live birth
CPT/HCPCS: 36415; 80048; 85025; 85610; 85730; 86593; 86850; 86900; 86901; 87389; 88307-TC; 90715